=== PATIENT | female | born 1990 | race Caucasian/White ===

== ENCOUNTER 2016-08-22 22:38 | Emergency (ER) | payer OTHER ==
[2016-08-22 23:06] VITALS: TEMP 98.3
[2016-08-22 23:44] LABS: RBC URINE 3 /hpf (0-3); TRANSITIONAL EPITHIAL < 1 /hpf (0-3); URINE BACTERIA FEW (<OCC); URINE BILIRUBIN NEGATIVE (NEGATIVE); URINE BLOOD NEGATIVE (NEGATIVE); URINE COLOR Yellow (YELLOW); URINE GLUCOSE (UA) NORMAL (Normal); URINE KETONE 1+ mg/dL (NEGATIVE); URINE PROTEIN NEGATIVE (NEGATIVE); URINE UROBILINOGEN NORMAL mg/dL (0.2-1.0); WBC URINE 10 /hpf (0-5)
[2016-08-22 23:45] LABS: URINE LEUKOCYTE ESTERASE 1+ Leu/uL (Negative)
[2016-08-23 01:09] LABS: BASO # 0.1 K/uL (0.0-0.2); BASO % 0.6 % (0.0-2.0); EOS # 0.2 K/uL (0.0-0.7); EOS % 2.4 % (0.0-4.0); HEMATOCRIT 35.8 % (34.0-47.0); LYMPH # 2.6 K/uL (1.0-4.3); LYMPH % 28.4 % (20.0-40.0); MEAN CELL VOLUME 84.8 fL (81.0-99.0); MEAN CORPUSCULAR HEMOGLOBIN 28.1 pg (27.0-31.0); MEAN CORPUSCULAR HGB CONC 33.1 g/dL (33.0-37.0); MONO # 0.6 K/uL (0.0-0.8); MONO % 6.6 % (0.0-10.0); RED CELL DISTRIBUTION WIDTH 13.1 % (11.5-14.5)
[2016-08-23 01:14] LABS: CHLORIDE 100 mmol/L (98-107)
[2016-08-23 01:15] LABS: POTASSIUM 3.7 mmol/L (3.6-5.2); SODIUM 138 mmol/L (132-148)
[2016-08-23 01:17] LABS: ALB/GLOB RATIO 2.2 (1.0-2.1); ALKALINE PHOSPHATASE 65 U/L (38-126); AST/SGOT 23 U/L (14-36); BILIRUBIN,TOTAL 0.6 mg/dL (0.2-1.3); CARBON DIOXIDE 28 mmol/L (22-30); GFR AFRICAN-AMERICAN > 60; TOTAL PROTEIN 7.7 g/dL (6.3-8.3)
[2016-08-23 01:18] LABS: ALT/SGPT 30 U/L (9-52); BLOOD UREA NITROGEN 11 mg/dL (7-17); CALCIUM 9.2 mg/dl (8.6-10.4); GLUCOSE,RANDOM 94 mg/dL (65-105)
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
[2016-08-23 04:03] VITALS: BP 121/84; PULSE 68; RESP 16
[2016-08-23 05:11] VITALS: O2SAT 99
== END 2016-08-23 04:42 | disposition home or self-care (01) ==
LOC: C.ER 22:38 → SUPCPDRO 22:38 → C.ER 08-23 04:10
DX: Z04.41 Encounter for examination and observation following alleged adult rape (principal)